=== PATIENT | male | born 1980 | race Caucasian/White ===

== ENCOUNTER 2025-07-11 08:33 | Emergency (ER) | payer OTHER, SELFPAY ==
[2025-07-11] MEDS ORDERED: HYDROmorphone 0.5 MG/0.5 ML SYRINGE ONE (08:49)
[2025-07-11] MEDS ORDERED: Ondansetron PF 4 MG/2 ML Vial ONE (08:49)
[2025-07-11 09:07] LABS: #Basophils 0.1 thou/uL (0.0-0.2); #Eosinophils 0.3 thou/uL (0.0-0.7); #Lymphocytes 2.3 thou/uL (1.20-3.40); #Monocytes 0.7 thou/uL (0.11-0.59); #Neutrophils 5.2 thou/uL (1.40-6.50); %Basophils 1.7 % (0.0-1.0); %Eosinophils 3.9 % (0.0-10.0); %Lymphocytes 26.2 % (21.0-51.0); %Monocytes 8.2 % (0.0-10.0); %Neutrophils 60.0 % (42.0-75.0); Hematocrit 41.1 % (42.0-52.0); Hemoglobin 13.9 g/dL (14.0-18.0); Mean Corpuscular Hemoglobin 30.8 pg (27.0-31.0); Mean Corpuscular Volume 90.9 fl (78.0-98.0); Platelet Count 355 10x3/uL (130-400); Red Blood Cell (RBC) Count 4.52 mill/uL (4.70-6.10); White Blood Cell (WBC) Count 8.7 10x3/uL (4.8-10.8)
[2025-07-11 09:18] LABS: ALT (SGPT) 15 U/L (Less than 45); AST (SGOT) 27 U/L (11-34); Albumin 4.0 g/dL (3.1-4.5); Alkaline Phosphatase 79 U/L (40-110); Anion Gap 16 mmol/L (10-20); BUN (Urea Nitrogen) 12 mg/dL (8.9-20.6); Bilirubin, Total 0.5 mg/dL (0.3-1.2); CK (CPK) 397 U/L (30-200); Calc. Creatinine Clearance 0 mL/min (70-130); Calcium 9.6 mg/dL (7.8-10.44); Carbon Dioxide 26 mmol/L (22-29); Chloride 99 mmol/L (98-107); Globulin 2.9 g/dL (2.4-3.5); Glucose 135 mg/dL (70-105); Potassium 3.2 mmol/L (3.5-5.1); Sodium 138 mmol/L (136-145)
[2025-07-11 09:34] LABS: Acetaminophen Less than 10 mcg/mL (Less than 10); Salicylate Less than 8.0 mg/dL (Less than 8.0)
[2025-07-11 09:44] LABS: Troponin I Less than 0.010 ng/mL (< 0.028)
[2025-07-11 10:32] LABS: Glucose, Urine (Dipstick) Negative (Negative); Leukocyte Negative (Negative); Protein, Urine (Dipstick) Negative (Neg-Trace); Specific Gravity, Urine 1.015 (1.005-1.030)
[2025-07-11 10:39] LABS: CAUTI Indications for Culture Pelvic or flank pain; Cocaine Metabolite Screen Negative (Negative); RBC/HPF 0-3 HPF (0-3); THC/Cannabinoid Screen PRELIM POSITIVE (Negative); Tricyclic Screen Negative (Negative); WBC/HPF 0-3 HPF (0-3)
[2025-07-11 10:40] LABS: Bacteria/HPF Rare-Few HPF (None Seen); Mucous/LPF Few LPF (<2+); Urine Culture Reflex No No
== END 2025-07-11 11:22 | disposition home or self-care (01) ==
LOC: MADERS 08:33
DX: M66.0 Rupture of popliteal cyst (principal); I10 Essential (primary) hypertension
CPT/HCPCS: 72131; 80053; 80306; 80307; 81001; 82550; 83605; 84484; 85025; 86140; 93005; 96374; 96375; J1171; J2405

== ENCOUNTER 2025-11-29 10:20 | Emergency (ER) | payer OTHER | END 2025-11-29 11:44 | disposition home or self-care (01) | LOC: MADERS 10:20 | DX: J02.9 Acute pharyngitis, unspecified (principal); B34.9 Viral infection, unspecified; I10 Essential (primary) hypertension; F41.8 Other specified anxiety disorders; F17.210 Nicotine dependence, cigarettes, uncomplicated; Z71.6 Tobacco abuse counseling; Z79.899 Other long term (current) drug therapy | CPT/HCPCS: 87081; 87428; 87430; 99283 ==